=== PATIENT | male | born 1955 | race American Indian/Alaskan Native ===

== ENCOUNTER 2022-03-06 07:35 | Day surgery (SDC) | payer OTHER ==
[~2022-03-06] VITALS: Ht 170.2 cm; Wt 81.7 kg
[~2022-03-06 07:35] MED LIST: BUDESONIDE0.25 MG/2 INH; FERROUS GLUCON324 M2 PO; NEURONTIN300 MG PO; VITAMIN C500 M5 PO
--- NOTE | 2022-03-06 08:53 | NUR ---
PT WAS RELUCTANT TO GIVE PHONE NUMBER FOR RIDE HOME . FINALLY AGREED.
--- NOTE | 2022-03-06 09:35 | NUR ---
03/06/22 0935 Fouzia Messina 0966-PATIENT ARRIVED TO PACU ON 2L NC LAYING LEFT LATERAL. PATIENT REACTIVE TO VERBAL STIMULI OPENING EYES IMMEDIATELY CLOSES. RR EVEN 96% 2L NC ABDOMEN SOFT. IVF INFUSING
--- NOTE | 2022-03-07 06:23 | OR ---
[facility] [address], [place] [address] Signed DATE OF OPERATION: 03/06/2022 SURGEON: Lillian Faust MD PREOPERATIVE DIAGNOSES: 1. Chronic iron deficiency anemia. 2. History of gastritis and esophagitis in 2010 at age 54. 3. History of hyperplastic colonic polyps in 2010 at age 54. POSTOPERATIVE DIAGNOSES: 1. GE junction at 26 cm. 2. 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 3. Small to moderate sized hiatal hernia. 4. Mild diffuse gastritis. 5. Extremely poor bowel prep. PROCEDURES: 1. EGD with CLOtest and biopsy of the antrum and GE junction. 2. Limited sigmoidoscopy to distal sigmoid colon. ESTIMATED BLOOD LOSS: None. INDICATIONS: Nanette is a 66-year-old gentleman, asked to see me for upper and lower endoscopy. He has a long history of iron deficiency anemia. I helped him with upper and lower endoscopy back in 2009 for the same reason. He had gastritis and esophagitis at that time. The CLOtest was negative. He had a tiny hyperplastic polyp removed. He had done well with Versed and fentanyl. Currently, his hemoglobin is 9.1 and a mean cell volume is 63. He is taking iron tablets. We had asked him to follow up in 10 years for repeat screening colonoscopy. He gives no family history of colon cancer or polyps. He has no upper or lower GI complaints. In the office, I gave Nanette a pamphlet on both upper and lower endoscopy. We had reviewed those together. There is risk including, but not limited to gas bloating, crampy abdominal pain, bleeding, perforation requiring surgery, and missed diagnosis. We also reviewed the written instructions for the bowel prep line by line. He recalls the need for IV conscious sedation. He had expressed understanding and wished to proceed. PROCEDURE NOTE: Nanette was taken into our endoscopy suite and placed in the supine semi-recumbent Electronically Signed By: LILLIAN FAUST MD 03/07/22 0623 PATIENT NAME: NANETTE RENAE SR OPERATIVE REPORT DATE OF : 53 REPORT #: [id number] PHYSICIAN: LILLIAN FAUST MD PCP: SAURABH HUGHES REPORT IS CONFIDENTIAL AND NOT TO BE RELEASED WITHOUT AUTHORIZATION [facility] [address], [place] [address] Signed position. He was given a total of 4 mg of Versed and 100 mcg of fentanyl to cover the case. A bite block was utilized. The adult gastroscope had been introduced and advanced down the third portion of the duodenum without difficulty. The duodenum and pyloric channel were unremarkable. The stomach showed very mild diffuse erythematous changes. We took a biopsy of the antrum for CLOtest as well as pathologic review. Upon retroflexion of the scope, I could see a small to moderate sized hiatal hernia. The scope was withdrawn up through the area of GE junction, which was compliant without stricture. It was actually a bit difficult to measure his hiatal hernia. He may in fact have Rasheed's esophagus. The Z-line itself was not particularly disrupted. We went ahead and took several biopsies around the Z-line for pathologic review. However, it looks like his Z-line has been displaced up the esophagus. It only measured 26 cm from his incisors, although based on his body habitus that may be accurate. After this, the gas was suctioned out and the gastroscope removed. The middle and upper esophagus were unremarkable. Nanette was rotated into the left lateral decubitus position. A digital rectal exam was performed and this was unremarkable. The adult colonoscope was introduced and we immediately encountered formed large balls of brown stool. We worked our way around several these and into the distal sigmoid colon where we encountered a wall of stool. We could not pass the scope any further. Therefore, the scope had been removed. No obvious issues in his rectum. After this, the gas was suctioned out and the colonoscope removed. Nanette tolerated the lower endoscopy quite well. RECOMMENDATIONS: I will see Nanette back in my office in 7 to 14 days to review his results. He will need to reschedule the colonoscopy with a double bowel prep. Lillian Faust MD ALB/MODL /[id number] cc: MD Vincent Willingham MD Electronically Signed By: LILLIAN FAUST MD 03/07/22 0623 PATIENT NAME: NANETTE RENAE OPERATIVE REPORT DATE OF : 53 REPORT #: [id number] PHYSICIAN: LILLIAN FAUST MD PCP: SAURABH HUGHES REPORT IS CONFIDENTIAL AND NOT TO BE RELEASED WITHOUT AUTHORIZATION [address] [address] Signed Lillian Faust MD Copies: HANG ALEXANDER MD, ROBERT C MD BOWER, ANDREW L MD ~ Electronically Signed By: LILLIAN FAUST MD 03/07/22622 PATIENT NAME: OCNANETTE VAN OPERATIVE REPORT DATE OF : 53 REPORT #: [id number] PHYSICIAN: LILLIAN FAUST MD PCP: SAURABH HUGHES REPORT IS CONFIDENTIAL AND NOT TO BE RELEASED WITHOUT AUTHORIZATION
--- NOTE | 2022-03-10 18:15 | PATH ---
[facility] [address] [facility] [place], [place] [address] Signed SPECIMEN(S): A ANTRUM/PYLORUS BIOPSY SPECIMEN(S): B GE JUNCTION SPECIMEN SOURCE: A. ANTRUM/PYLORUS BIOPSY B. GE JUNCTION CLINICAL HISTORY: No preop or clinical information is given on requisition. FINAL PATHOLOGIC DIAGNOSIS: A. Stomach, antrum/pylorus, biopsy: - Mild superficial chronic gastritis. B. 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 COMMENT: Regarding specimen A, the sections through the gastric biopsy show an architecturally normal gastric mucosa. The superficial lamina propria contains an increased number of lymphocytes and plasma cells. A careful search is made for H. pylori and none are identified. There is no evidence of intestinal metaplasia or abnormal infiltrates. H pylori immunohistochemical stain is pending and results will follow in an addendum report. Regarding specimen B, the sections through the biopsy show the presence of cardiac mucosa that contains specialized intestinal metaplasia, including goblet cells. If this biopsy derives from endoscopically abnormal mucosa in the tubular esophagus, then the findings meet the ACG diagnostic criteria of Rasheed's esophagus. Otherwise, this is considered to be intestinal metaplasia at the GE junction. There is no evidence of H. pylori. REJI:anil:C2NR MICROSCOPIC EXAMINATION: Histologic sections of all submitted blocks are examined by light microscopy. These findings, together with the gross examination, support the pathologic diagnosis. GROSS DESCRIPTION: Two specimens are received in two containers, labeled "TB." A. The specimen, labeled "TB, antrum biopsy," is received in formalin and PATIENT NAME: NANETTE RENAE SR PATHOLOGY DATE OF : 53 REPORT #: [id number] PHYSICIAN: PATRICK MILLER PCP: SAURABH HUGHES-Marv REPORT IS CONFIDENTIAL AND NOT TO BE RELEASED WITHOUT AUTHORIZATION [facility] [address] [place], [place] [address] Signed consists of one belle soft tissue fragment that measures 0.1 cm in greatest dimension. The specimen is entirely submitted in cassette (A1). B. The specimen, labeled "TB, GE junction biopsy," is received in formalin and consists of four belle soft tissue fragments that measure 0.1 to 0.2 cm in greatest dimension. The specimen is entirely submitted in cassette (B1). JS (under the direct supervision of a pathologist) The Gross Description was prepared using a voice recognition system. The report was reviewed for accuracy; however, sound-alike word errors, addition and/or deletions may occur. If there is any question about this report, please contact Client Services. PERFORMING LABORATORY: The technical component was performed by [facility], [address] [place] [id number] (CLIA# [id number]). The professional interpretation was performed by [facility], [facility], [address] [place] [address] (CLIA#: [id number]). Diagnostician: Tim Law MD Pathologist Electronically Signed 03/10/2022 Copies: ~ PATIENT NAME: NANETTE RENAE SR PATHOLOGY DATE OF : 53 REPORT #: [id number] PHYSICIAN: PATRICK PATHOLOGY PCP: SAURABH HUHGES REPORT IS CONFIDENTIAL AND NOT TO BE RELEASED WITHOUT AUTHORIZATION
== END 2022-03-06 10:20 | disposition home or self-care (01) ==
LOC: OPS 07:35 → DS 07:35 → OPS 09:00 → DS 09:00 → OPS 10:20
PROVIDERS: ATTEND Colon & Rectal Surgery
PROC: 0DJD8ZZ Inspection of Lower Intestinal Tract, Via Natural or Artificial Opening Endoscopic (ICD-10-PCS; 2022-03-06)
PROC: 0DB48ZX Excision of Esophagogastric Junction, Via Natural or Artificial Opening Endoscopic, Diagnostic (ICD-10-PCS; principal; 2022-03-06 09:00)
PROC: 0DB78ZX Excision of Stomach, Pylorus, Via Natural or Artificial Opening Endoscopic, Diagnostic (ICD-10-PCS; 2022-03-06 09:00)
DX: K29.30 Chronic superficial gastritis without bleeding (principal); K31.A0 Gastric intestinal metaplasia, unspecified; K44.9 Diaphragmatic hernia without obstruction or gangrene; J45.909 Unspecified asthma, uncomplicated; E78.2 Mixed hyperlipidemia; E03.9 Hypothyroidism, unspecified; Z86.010 Personal history of colon polyps
CPT/HCPCS: 43239; G0104; 36415; 87077; 99153; G0500; J0690; J2250; J3010; J7121

== ENCOUNTER 2022-04-17 08:32 | Day surgery (SDC) | payer OTHER ==
[~2022-04-17] VITALS: Ht 170.2 cm; Wt 84.0 kg
--- NOTE | 2022-04-17 10:46 | NUR ---
04/17/22 1046 Iveth Baires PT TO PACU SLEEPING O2 PLACED VIA NASAL CANNULA. PT PASSING GAS, HE DOES NOT REPSPOND TO VEBAL COMMANDS, HE IS NOT AROUSED BY BEING TOUCHED OR SHAKEN. PT VERY SLEEPY.
--- NOTE | 2022-04-17 11:45 | OR ---
[facility] [address] [place], [place] [address] Signed DATE OF OPERATION: 04/17/2022 SURGEON: Lillian Faust MD PREOPERATIVE DIAGNOSES: 1. Chronic iron deficiency anemia. 2. History of gastritis and esophagitis in 2010 at age 54. 3. Personal history of hyperplastic colonic polyps in 2010 at age 54. POSTOPERATIVE DIAGNOSES: 1. Mild diffuse gastritis. 2. Moderate to large hiatal hernia. 3. 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 4. Crura at 40 cm. 5. Minimal sigmoid diverticulosis. 6. 8 mm polyp at 10 cm. PROCEDURES: 1. EGD with CLOtest and biopsies of the antrum at GE junction. 2. Colonoscopy with snare polypectomy. ESTIMATED BLOOD LOSS: None. INDICATIONS: Nanette is a 66-year-old gentleman, asked to see me for upper and lower endoscopy. He has a long history of iron deficiency anemia. His hemoglobin is currently 9.1 with a mean cell volume of 63. He has been taking iron tablets. He went to his assistant counsel. He underwent upper and lower endoscopy for the same back in 2009. He had gastritis and esophagitis at that time. The CLOtest was negative. He had a tiny hyperplastic 5 mm polyp in the colon. He had done well with Versed and fentanyl. At that time, we asked him to follow up in 10 years for a repeat screening colonoscopy. He has no family history of colon cancer or polyps. He seems to have no upper or lower GI complaints. In the office, I gave him pamphlets on both upper and lower endoscopy. We reviewed the nature of the two tests. He understands there is risk including, but not limited to gas bloating, crampy abdominal pain, bleeding, perforation requiring surgery, and missed diagnosis. We also discussed the need for IV conscious sedation. He had expressed understanding and wished to proceed. PROCEDURE NOTE: Electronically Signed By: LILLIAN FAUST MD 04/17/22 1145 PATIENT NAME: NANETTE RENAE SR OPERATIVE REPORT DATE OF : 53 REPORT #: [id number] PHYSICIAN: LILLIAN FAUST MD [facility] REPORT IS CONFIDENTIAL AND NOT TO BE RELEASED WITHOUT AUTHORIZATION [facility] [address] [place], [place] [address] Signed Nanette was taken into our endoscopy suite and placed in a supine semi-recumbent position. He was given a total of 150 mcg of fentanyl and 8 mg of Versed to cover the cases. The posterior oropharynx was anesthetized with lidocaine spray. Bite block was utilized for the case. The adult gastroscope was introduced and advanced down to the third portion of the duodenum without difficulty. The duodenum and pyloric channel were unremarkable. He does have mild erythematous changes throughout the entire stomach. We took biopsies from the antrum for pathologic review as well as CLOtest. There were no ulcerations. Upon retroflexion of the scope, we can see he does have a ferjaghx-hi-yzxad hiatal hernia. We were able to measure the crura at 40 cm. However, we had a difficult time finding the proximal aspect of his hiatal hernia. We did find the GE junction at 27 cm from his incisura. We took several biopsies in this area for pathologic review. We saw no gastric or esophageal varices. There was no strictures. After this, the gas was suctioned out the gastroscope removed. Nanette tolerated the procedure quite well. Nanette was then rotated into the left lateral decubitus position. He was maintained on IV sedation with Versed and fentanyl. A digital rectal exam was performed and this was unremarkable. He had good sphincter tone. No external hemorrhoids. There were no masses. The adult colonoscope was introduced, advanced all around into the cecum under direct visualization of the camera without difficulty. His prep was quite good. We could easily see the appendiceal orifice and ileocecal valve. The scope was then slowly withdrawn. We took pictures throughout for photodocumentation. He had just a few diverticula in the sigmoid colon. There were small to moderate in size, few in number, and scattered about. Down in the rectum at about 10 cm, he had an 8 mm polyp. We divided it with the snare and suctioned it through our scope and caught in our trap. The scope was then retroflexed. We did not see any additional pathology above the anal canal. After this, the gas was suctioned out and the colonoscope removed. Nanette tolerated the procedure quite well. RECOMMENDATIONS: I will see Nanette back in my office in 7 to 14 days to review his results. He probably needs a barium enema to better evaluate this hiatal hernia. He certainly needs close surveillance of this long segment Rasheed's esophagus. Lillian Faust MD ALB/MODL /[id number] Electronically Signed By: LILLIAN FAUST MD 04/17/22 1145 PATIENT NAME: NANETTE RENAE MORRIS OPERATIVE REPORT DATE OF : 53 REPORT #: [id number] PHYSICIAN: LILLIAN FAUST MD PCP: [facility] REPORT IS CONFIDENTIAL AND NOT TO BE RELEASED WITHOUT AUTHORIZATION [facility] [address] [place] [address] Signed cc: MD Celso Pepper MD Andrew L Bower, MD Copies: SANAM CROCKER MD, JAMES MD BOWER, ANDREW L MD ~ Electronically Signed By: LILLIAN FAUST MD 04/17/22 1145 PATIENT NAME: NANETTE RENAE OPERATIVE REPORT DATE OF : 53 REPORT #: [id number] PHYSICIAN: LILLIAN FAUST MD PCP: [facility] REPORT IS CONFIDENTIAL AND NOT TO BE RELEASED WITHOUT AUTHORIZATION
--- NOTE | 2022-04-18 15:42 | PATH ---
[facility] [address] [place], [place] [address] Signed SPECIMEN(S): A ANTRUM BIOPSY SPECIMEN(S): B GE JUNCTION BIOPSY SPECIMEN(S): C POLYP AT 10 CM SPECIMEN SOURCE: A. ANTRUM BIOPSY B. GE JUNCTION BIOPSY C. POLYP AT 10 CM CLINICAL HISTORY: Colonoscopy. Anemia; polyp x 1 2009. FINAL PATHOLOGIC DIAGNOSIS: A. Stomach, antrum, biopsy: - Chronic, active gastritis. - Positive for Helicobacter organisms on HE stain. - Negative for dysplasia or malignancy. B. Gastroesophageal junction, biopsy: - Squamocolumnar junctional mucosa with intestinal metaplasia, see Comment. - Changes consistnet with reflux esophagitis. - Negative for dysplasia or malignancy. C. Colon, polyp at 10 cm, polypectomy: - Tubular adenoma. - Negative for high-grade dysplasia or malignancy. COMMENT: Regarding specimen B: The specimen was designated gastroesophageal junction. The findings could represent Rasheed's esophagus in the correct setting, but endoscopic correlation is required. NAL:cml:C2NR MICROSCOPIC EXAMINATION: Histologic sections of all submitted blocks are examined by light microscopy. These findings, together with the gross examination, support the pathologic diagnosis. GROSS DESCRIPTION: Three specimens are received in three containers, labeled "TB." A. The specimen, labeled "TB, antrum biopsy," is received in formalin and consists of one belle soft tissue fragment that measures 0.2 cm in greatest dimension. The specimen is entirely submitted in PATIENT NAME: NANETTE RENAE MORRIS PATHOLOGY DATE OF : 53 REPORT #: [id number] PHYSICIAN: PATRICK MILLER PCP: ISIDRO FRY REPORT IS CONFIDENTIAL AND NOT TO BE RELEASED WITHOUT AUTHORIZATION [facility] [address] [place] [id number] Signed cassette (A1). B. The specimen, labeled "TB, GE junction biopsy," is received in formalin and consists of three belle soft tissue fragments that measure 0.1-0.2 cm in greatest dimension. The specimen is entirely submitted in cassette (B1). C. The specimen, labeled "TB, colon polyp at 10 cm," is received in formalin and consists of one belle soft tissue fragment that measures 0.8 cm in greatest dimension. The specimen is bisected and entirely submitted in cassette (C1). JS (under the direct supervision of a pathologist) The Gross Description was prepared using a voice recognition system. The report was reviewed for accuracy; however, sound-alike word errors, addition and/or deletions may occur. If there is any question about this report, please contact Client Services. PERFORMING LABORATORY: The technical component was performed by [email or web address], [address] [place] [id number] (CLIA# [id number]). [email or web address], [address] [place] [address] (CLIA# [id number]). Diagnostician: Caroline Quan MD Pathologist Electronically Signed 04/18/2022 Copies: ~ PATIENT NAME: NANETTE RENAE MOR[facility]IS [facility] DATE OF : 53 REPORT #: [id number] PHYSICIAN: PATRICK PATHOLOGY [facility] REPORT IS CONFIDENTIAL AND NOT TO BE RELEASED WITHOUT AUTHORIZATION
== END 2022-04-17 11:45 | disposition home or self-care (01) ==
LOC: OPS 08:32 → DS 08:34 → OPS 11:45
PROVIDERS: ATTEND Colon & Rectal Surgery
PROC: 0DBP8ZX Excision of Rectum, Via Natural or Artificial Opening Endoscopic, Diagnostic (ICD-10-PCS; 2022-04-17)
PROC: 0DB48ZX Excision of Esophagogastric Junction, Via Natural or Artificial Opening Endoscopic, Diagnostic (ICD-10-PCS; principal; 2022-04-17 09:45)
PROC: 0DB68ZX Excision of Stomach, Via Natural or Artificial Opening Endoscopic, Diagnostic (ICD-10-PCS; 2022-04-17 09:45)
DX: K29.50 Unspecified chronic gastritis without bleeding (principal); D12.8 Benign neoplasm of rectum; D50.9 Iron deficiency anemia, unspecified; K57.30 Diverticulosis of large intestine without perforation or abscess without bleeding; K44.9 Diaphragmatic hernia without obstruction or gangrene; Z87.19 Personal history of other diseases of the digestive system; E78.2 Mixed hyperlipidemia; E03.9 Hypothyroidism, unspecified; J45.909 Unspecified asthma, uncomplicated
CPT/HCPCS: 36415; 87077; 99153; G0500; J2250; J3010

== ENCOUNTER 2022-11-06 08:43 | Emergency (ER) | payer OTHER ==
[~2022-11-06] VITALS: Ht 170.2 cm; Wt 84.5 kg
--- OUTSIDE RECORDS SUMMARY | 2022-11-06 08:46 | XMS ---
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 Freddie has no Care Guidelines for this patient. Chip VISIT COUNT (12 MO.) 1 ANAYA Obando TOTAL 1 NOTE: Visits indicate total known visits. ED/[facility] VISIT TRACKING (12 MO.) 11/06/2022 08:45 ANAYA Rivera [place] TYPE: Emergency COMPLAINT: - R KNEE INJURY INPATIENT VISIT TRACKING (12 MO.) No inpatient visits to display in this time frame [email or web address]
== END 2022-11-06 09:23 | disposition home or self-care (01) ==
LOC: ED 08:43
DX: M70.41 Prepatellar bursitis, right knee (principal)
CPT/HCPCS: 99283; A9270

== ENCOUNTER 2022-11-08 07:13 | Emergency (ER) | payer OTHER ==
[~2022-11-08] VITALS: Ht 170.2 cm; Wt 84.5 kg
--- OUTSIDE RECORDS SUMMARY | 2022-11-08 07:16 | XMS ---
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 Freddie has no Care Guidelines for this patient. Chip [facility] ([facility] MO.) [facility] 2 NOTE: Visits indicate total known visits. ED/C VISIT TRACKING (12 MO.) 11[facility]22 07:[facility] [facility] Emergency COMPLAINT: - EXTREMITY PAIN/INJURY 11/06/2022 08:[address] [facility] [place] TYPE: Emergency COMPLAINT: - R KNEE INJURY DIAGNOSES: - Pain in right knee - Prepatellar bursitis, right knee INPATIENT VISIT TRACKING (12 MO.) No inpatient visits to display in this time frame [email or web address]
[2022-11-08] MEDS ORDERED: CEPHALEXIN500 M1 PO (08:07)
== END 2022-11-08 08:17 | disposition home or self-care (01) ==
LOC: ED 07:13
DX: M70.41 Prepatellar bursitis, right knee (principal); Z79.899 Other long term (current) drug therapy
CPT/HCPCS: 73560; 99283-25; A9270

== ENCOUNTER 2022-11-10 07:58 | Emergency (ER) | payer OTHER ==
[~2022-11-10] VITALS: Ht 170.2 cm; Wt 84.5 kg
[~2022-11-10 07:58] MED LIST changes: +BUDESONIDE-FO10.2 G1 INH; -BUDESONIDE0.25 MG/2 INH; +CEPHALEXIN500 M1 PO
--- OUTSIDE RECORDS SUMMARY | 2022-11-10 08:01 | XMS ---
PreManage Notification: NANETTE RENAE Security [facility] Director Events No recent Security Events currently on file CRITERIA MET - [facility] - 2 Visits in 30 Days - [facility] CARE PROVIDERS There are no care providers on record at this time. Freddie has no Care Guidelines for this patient. Chip VISIT COUNT (12 MO.) 3 [facility] TOTAL 3 NOTE: Visits indicate total known visits. ED/C VISIT TRACKING (12 MO.) 11/10/2022 07:59 [facility] [place] TYPE: Emergency COMPLAINT: - R LEG PAIN 11/08/2022 07:14 ANAYA Rivera [place] TYPE: Emergency COMPLAINT: - EXTREMITY PAIN/INJURY 11/06/2022 08:45 ANAYA Rivera [place] TYPE: Emergency COMPLAINT: - R KNEE INJURY DIAGNOSES: - Pain in right knee - Prepatellar bursitis, right knee INPATIENT VISIT TRACKING (12 MO.) No inpatient visits to display in this time frame [id number]
[2022-11-10] MEDS ORDERED: CEPHALEXIN500 M1 PO (10:03)
[2022-11-10] MEDS ORDERED: DOXYCYCLINE HY100 MG PO (10:03)
[2022-11-10] MEDS ORDERED: ONDANSETRON ODT8 MG PO (10:07)
== END 2022-11-10 10:45 | disposition home or self-care (01) ==
LOC: ED 07:58
DX: M71.161 Other infective bursitis, right knee (principal); Z79.899 Other long term (current) drug therapy
CPT/HCPCS: 20610; 36415; 80053; 85025; 87205; 99283-25; J0690; J2405

== ENCOUNTER 2022-11-13 11:15 | Inpatient (IN) | payer OTHER ==
[~2022-11-13] VITALS: Ht 170.2 cm; Wt 82.5 kg
[~2022-11-13 11:15] MED LIST changes: +DOXYCYCLINE HY100 MG PO; +ONDANSETRON ODT8 MG PO
[2022-11-13] MEDS ORDERED: CEPHALEXIN500 MG PO (11:40)
[2022-11-13] MEDS ORDERED: PAIN RELIEVER500 M1 PO (12:23)
[2022-11-13] MEDS ORDERED: IBUPROFEN400 MG PO (12:23)
--- NOTE | 2022-11-13 12:49 | NUR ---
PT TO ROOM 112 VIA WC WITH SECURITY ASSIST.
--- NOTE | 2022-11-13 13:40 | NUR ---
RT COLLECTED RAPID COVID 19 SWAB AT THIS TIME WITH NO COMPLICATIONS.
--- NOTE | 2022-11-13 14:00 | NUR ---
Spoke with Serafin. He reside in [place] in a Duplex, has 1 step to get into his home. 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 Had worsening pain since that time and difficulty walking today. Was a direct admit. States he will have surgery tomorrow. He has not used DME in the past, but did have a walking stick. He lives alone, drives, shops, and does his own cooking. His concern is he left his phone at his home, coworkers do not know where he is. He asks I call his boss, Chelle and let her know where he is and ask someone to pickup his house padgett from his room here and get his phone. He states he doesn't know any ones phone numbers. Pt does not know his insurance or his Drs name, but does state he uses [facility] and their pharmacy. His niece is arriving from out of town and he wants to tell her he is here. Called Chelle at [facility] and updated. She will take care of everything. Pt plans on dc to home when cleared medically. We did discuss he may need a walker, will wait to see what Dr. Baires documents for needs.
--- NOTE | 2022-11-13 14:53 | NUR ---
in room with pt and dr valderrama, pt given po pain medications for r leg.
--- NOTE | 2022-11-13 15:50 | NUR ---
in room with pt attempted to call cousin jose f to let someone know where he is - cell phone is at home - no answer no message - rn wrote number on white board. vanco started iv left arm. pt has voided 450 ml and pre op ekg is complete. lr for surgery at bedside and pre op wipe down instructions given for am. aware of npo status at midnight and sign to door. blank consent and labs to chart.
[2022-11-13] MEDS ORDERED: OMEPRAZOLE20 MG PO (17:00)
--- NOTE | 2022-11-13 17:37 | NUR ---
Medications reconciled using [facility] pharmacy records and patient interview
--- NOTE | 2022-11-13 18:51 | NUR ---
pt resting in bed, call light in reach - denies needs. leg elevated.
--- NOTE | 2022-11-13 19:00 | NUR ---
REPORT RECEIVED FROM CHANDLER CARNEY. PT LAYING IN BED AND RESPONDS WHEN ADDRESSED. IV ALARMING, RESOLVED. PT DENIES ANY NEEDS AT THIS TIME. CALL LIGHT IN REACH.
--- NOTE | 2022-11-13 20:47 | NUR ---
IN TO ROUND ON PT. VITALS AND I&Os COMPLETE. ASSESSMENT COMPLETE. LUNG SOUNDS CLEAR. BOWEL TONES ACTIVE. PT DENIES ANY PAIN AT THIS TIME. RLE WARM TO TOUCH, RED AND EDEMA NOTED. BLE PEDAL PULSES PALPABLE. DRESSING TO R KNEE SMALL AMOUNT OF SHADOWING NOTED, OTHERWISE D/I. IV INFUSING WNL. PT REQUESTING TO GET UP AND PERFORM ORAL CARE. SBA FROM BED TO RESTROOM AND BACK TO BED. PT HAS STEADY GAIT. PT REPORTS NO OTHER NEEDS AT THIS TIME. CALL LIGHT IN REACH. PT INFORMED TO USE CALL LIGHT IF PT NEEDS ASSISTANCE UNPLUGGING IV POLE TO USE RESTOOM. PT VERBALIZES UNDERSTANDING.
--- NOTE | 2022-11-13 21:47 | EKG ---
[facility] [address] [facility] [place] [address] Signed Normal sinus rhythm Nonspecific T wave abnormality Abnormal ECG No previous ECGs available Confirmed by OTTO VILLALTA MD ([id number]) on 11/13/2022 9:47:25 PM Electronically Signed By: OTTO VILLALTA MD 11/13/222146 PATIENT NAME: NANETTE RENAE MORRIS Electrocardiogram DATE OF : 53 PHYSICIAN: OTTO VILLALTA MD REPORT #: [id number] REPORT IS CONFIDENTIAL AND NOT TO BE RELEASED WITHOUT AUTHORIZATION
--- NOTE | 2022-11-13 22:10 | NUR ---
IN TO ROUND NO PT. PT LAYING IN BED ON LEFT SIDE. RR EVEN AND UNLABORED. NO NEEDS IDENTIFIED AT THIS TIME. CALL LIGHT IN REACH.
--- NOTE | 2022-11-13 23:04 | NUR ---
IN TO ROUND ON PT. PT LAYING IN BED AND ADDRESSES THIS RN WHEN THIS RN ENTERS ROOM. PT REPORTS BEING READY FOR BED. PT REQUESTING LIGHT TO BE TURNED OFF. LIGHT TURNED OFF. IV INFUSING WNL. PT DENIES ANY OTHER NEEDS AT THIS TIME. CALL LIGHT IN REACH. RLE ELEVATED WITH PILLOW.
--- NOTE | 2022-11-13 23:39 | NUR ---
IN TO ROUND ON PT. PT LAYING IN BED WITH EYES CLOSED. RR EVEN AND UNLABORED. PT ADDRESSES THIS RN WHEN ENTERING ROOM. PT REPORTS USING URINAL, URINAL EMPTIED. IV INFUSING WNL. WATER AND GATORADE REMOVED FROM PTs REACH. PT INFORMED OF NPO STATUS AT MIDNIGHT. PT VERBALIZES UNDERSTANDING. PT DENIES ANY OTHER NEEDS AT THIS TIME. CALL LIGHT IN REACH.
--- NOTE | 2022-11-14 00:22 | NUR ---
IN TO ROUND ON PT. PT LAYING IN BED WITH RLE ELEVATED ON PILLOW. PTs EYES CLOSED. RR EVEN AND UNLABORED. NO NEEDS IDENTIFIED AT THIS TIME. CALL LIGHT IN REACH.
--- NOTE | 2022-11-14 01:22 | NUR ---
IN TO ROUND ON PT. PT LAYING IN BED WITH EYES CLOSED. RR EVEN AND UNLABORED. NO NEEDS IDENTIFIED AT THIS TIME. CALL LIGHT IN REACH. IV INFUSING WNL.
--- NOTE | 2022-11-14 02:39 | NUR ---
IN TO COMPLETE VITALS AND I&Os. ASSESSMENT COMPLETE. LUNG SOUNDS CLEAR. BOWEL TONES ACTIVE. PT DENIES ANY PAIN AT THIS TIME. RLE EDEMA NOTED, RED AND WARM TO TOUCH. RLE ELEVATED ON PILLOW. URINAL EMPTIED. PT DENIES ANY OTHER NEEDS AT THIS TIME. CALL LIGHT IN REACH.
--- NOTE | 2022-11-14 04:14 | NUR ---
IN TO ROUND ON PT. PT AWAKE IN BED WATCHING TV. PT RESPONDS WHEN ADDRESSED. PT DENIES ANY NEEDS AT THIS TIME. CALL LIGHT IN REACH. IV INFUSING WNL.
--- NOTE | 2022-11-14 05:32 | NUR ---
IN TO ROUND ON PT. PT LAYING IN BED WATCHING TV. PT ADDRESSES THIS RN WHEN ENTERING ROOM. PT REQUESTING LIGHT TO BE TURNED ON. LIGHT TURNED ON. I&Os COMPLETE. PT REPORTING PAIN 2/10 IN RLE. PT DENIES PRN PAIN MEDICATION WHEN OFFERE. PT REPORTS NO OTHER NEEDS AT THIS TIME. CALL LIGHT IN REACH.
--- NOTE | 2022-11-14 06:25 | NUR ---
IN WITH ANDREW RN TO ASSIST PT WITH HIBICLENSE WIPE DOWN. BANDAIT TO R KNEE REMOVED. SHADOWING NOTED TO DRESSING. R KNEE NOTED TO HAD SEROUSANGUENOUS FLUID DRAINING. LINENS CHANGED. NEW GOWN PROVIDED. PT DENIES ANY OTHER NEEDS AT THIS TIME. CALL LIGHT IN REACH. URINE OUTPUT NOTED IN URINAL. URINAL EMPTIED.
--- NOTE | 2022-11-14 07:00 | NUR ---
report from juice navas, pt ready for or with dr patton for r knee. lr strait tubing in room, and consent/labs/xray to chart. pt resting in bed - surgical wipe is complete.
--- NOTE | 2022-11-14 07:00 | NUR ---
dr valderrama aware of preliminary result from anaerobic/aerobic/gram stain from abscess. results show light growth staphylococcus aureus. no new orders received at this time. primary eloise bose aware.
--- NOTE | 2022-11-14 07:10 | NUR ---
THIS RN CALLED DR. SANCHEZ. UPDATED ON LAB RESULTS. NO NEW ORDERS RECEIVED.
--- NOTE | 2022-11-14 08:29 | NUR ---
PATIENT IN OR, WILL CHECK IN ON THE PATIENT WHEN HE RETURNS.
--- NOTE | 2022-11-14 09:16 | NUR ---
11/14/22 0916 Tati Galvin 0910- PT ARRIVES TO PACU NONAROUSABLE TO STIMULI. PT NEEDING A JAW LIFT TO MAINTAIN PATENT AIRWAY. RESP EVEN AND UNLABORED. OXYGEN SAT HIGH 90'S TO 100% ON 6L VIA MASK. 0914- PT REPOSITIONED IN BED WHERE AIRWAY CAN BE MAINTAINED WITHOUT JAW LIFT. RESP EVEN AND UNLABORED. OXYGEN SAT HIGH 90'S TO 100% ON 6L VIA MASK.
--- NOTE | 2022-11-14 09:35 | NUR ---
th rn returned call to [facility]anto[facility] [phone] he reported [place] called him to notify of pt having surgery and was worried. re assured him he left his cell phone at home and rn would give pt the phone number to return call.
--- NOTE | 2022-11-14 10:00 | NUR ---
pt returned to room 112, r leg with ice and elevation, drsg to r knee cdi, pt denies needs, vitals wnl- visitors in room to see pt, call light in reach.
--- NOTE | 2022-11-14 10:25 | NUR ---
INTO SEE PATIENT, PATIENT AWAKE WATCHING TV. HE STATES HE HAS "A LITTLE PAIN, BUT IT'S OKAY." AFTER RETURNING FROM THE OR. PATIENT HAS NO FURTHER NEEDS AT THIS TIME. WILL CONTINUE TO F/U WITH PATIENT.
--- NOTE | 2022-11-14 11:01 | NUR ---
POST OP VITAL SIGNS STABLE - PT RESTING IN BED WATCHING TV, DENIES COMPLAINTS OR NEEDS AT THIS TIME.
--- NOTE | 2022-11-14 11:22 | NUR ---
CPOX STARTED ON PT. SAT 93.
--- NOTE | 2022-11-14 11:34 | NUR ---
in room with pt - po pain meds given for 5/10 r knee pain. ensure given - educated pt on constipation and nutrtion for post op... menu given and explained for calling in, pt happy. ice to inc. and cdi. call light in reach.
--- NOTE | 2022-11-14 14:00 | NUR ---
in room with dr valderrama and jose complete - drsg wnl - cms wnl, pt denies needs, call light in reach.
--- NOTE | 2022-11-14 14:23 | NUR ---
PATIENT IN BED AFTER MEAL. VITALS COMPLETED BY NURSE. I/O'S COMPLETED BY THIS NEW CAR MAKE READY WORKER. CALL LIGHT WITHIN REACH.
--- NOTE | 2022-11-14 14:55 | NUR ---
iv toradol given as scheduled /10 pain in r kneww - pt resting and denies other needs. call light in reach and knee wnl.
--- NOTE | 2022-11-14 19:00 | NUR ---
ASSUMED CARE OF PT UPON RECEIVING BEDSIDE HANDOFF REPORT FROM DAY NURSE. PT AOX4, NAD, NO C/O. WILL CONTINUE TO MONITOR AND FOLLOW POC.
--- NOTE | 2022-11-14 19:45 | NUR ---
PT IS BACK TO BED FROM THE TOILET, X1 SCD CUFF ON PT, NO FURTHER NEEDS AT THIS TIME
--- NOTE | 2022-11-15 00:22 | NUR ---
PT RESTING IN BED, ASLEEP BUT EASILY AROUSED. VSS, NAD, NO C/O. NO CHANGE TO ASSESSMENT.
--- NOTE | 2022-11-15 04:20 | NUR ---
PT SLEEPING, EASILY AROUSED. NAD, NO C/O. NO CHANGE IN ASSESSMENT. WILL CONTINUE TO MONITOR AND FOLLOW POC.
--- NOTE | 2022-11-15 07:01 | NUR ---
PT WITH NO ACUTE OVERNIGHT EVENTS. VSS, NO C/O. WILL HANDOFF CARE OF PT TO DAY RN DURING BEDSIDE REPORT.
--- NOTE | 2022-11-15 08:00 | NUR ---
ASSESSMENT COMPLETED. DISCUSSED POC FOR DAY. DRESSING TO RIGHT LEG INTACT. PATIENT REQUESTING PAIN MEDICATION, STATES " I AM ABLE TO MOVE MY LEG BETTER, BUT IT'S STILL PAINFUL".
--- NOTE | 2022-11-15 08:44 | NUR ---
WENT IN PATIENT'S ROOM. PATIENT WAS EATING HIS BREAKFAST WHILE IN BED. ASKED PATIENT IS THERE ANYTHING HE NEEDS RIGHT NOW AND HE SAID NO. HE DID SAY HE WANTED TO TAKE A SHOWER.
--- NOTE | 2022-11-15 09:30 | NUR ---
ADMINISTERED PAIN MEDICATION PER MAR, PATIENT THEN UP TO BATHROOM WITH SUPERINTENDENT SANITATION. APPEARS STEADY ON FEET. IV ANTIBIOTICS INFUSING. NO OTHER NEEDS AT THIS TIME.
--- NOTE | 2022-11-15 10:30 | NUR ---
PATIENT REPORTS PAIN MEDICATION EFFECTIVE, REPORTS PAIN TOLERABLE RATES 3/10 ON PAIN SCALE. NO OTHER NEEDS AT THIS TIME.
--- NOTE | 2022-11-15 12:02 | NUR ---
IN ROOM ROUNDING ON PATIENT.
--- NOTE | 2022-11-15 12:58 | NUR ---
NURSE HANDOFF TO LEAH ARTEAGA.
--- NOTE | 2022-11-15 16:02 | NUR ---
REPORT RECEIVED FROM GABRIELA ARTEAGA AT 1300. PATIENT SHOWERED- RAGMAN SET UP AND HE SHOWERED INDEPENDELTY. RIGHT WRIST IV FLUSHED W/ 10 ML NS WNL- SALINE LOCKED. PATIENT REPORTED 6/10 PAIN AFTER SHOWER- VICODIN GIVEN. SEE EMAR. PATIENT REPORTS PAIN 4/10 ACCEPTABLE AFTER VICODIN; REPOSITION AND ICE. [address] SANCHEZ C&S RETURNED -MRSA POSITIVE. NIO ENTERED FOR CONTACT PRECATIONS. COMMUNICATED WITH CHARGE AND RAGMAN- INITATED CONTACT PRECAUTIONS PER PROTOCOL. WRITTEN AND VERBAL EDUCAITON PROVIDED TO PATIENT ON MRSA, CONTACT PRECATIONS, AND BURSITIS. PATIENT VERBALIZED UNDERSTANDING OF PRECATIONS AND ASKED QUESTIONS APPROPRIATELY. VOIDS IN URINAL WITHOUT DIFFICULTY AND AMBULATES WITH SBA. NOTIFED DR SANCHEZ THAT PT WAS UNABLE TO SEE PATIENT TODAY BUT CAN FOLLOW UP TOMORROW.
--- NOTE | 2022-11-16 02:00 | NUR ---
PT SLEEPING IN BED, EASILY AROUSED. NAD, NO C/O. WILL CONTINUE TO MONITOR AND FOLLOW POC.
--- NOTE | 2022-11-16 06:10 | NUR ---
PT WITH NO ACUTE OVERNIGHT EVENTS. VSS, NAD, NO C/O. WILL CONTINUE TO MONITOR AND FOLLOW POC AND HANDOFF PT CARE TO DAY NURSE UPON COMPLETING BEDSIDE SHIFT REPORT.
--- NOTE | 2022-11-16 08:00 | NUR ---
FULL BODY ASSESSMENT DONE. DRESSING TO RIGHT KNEE CLEAN AND INTACT. PROVIDING MORNING CARE. PATIENT SET UP WITH BREAKFAST, SITTING UP IN RECLINER. RATED PAIN 5/10 ON PAIN SCALE, AMDINISTERED PAIN MEDICATION PER MAR.
--- NOTE | 2022-11-16 09:32 | OR ---
[facility] [address] [place], [place] [address] Signed DATE OF OPERATION: 11/14/2022 SURGEON: Yeimi Baires MD PREOPERATIVE DIAGNOSIS: Right knee prepatellar bursitis with associated cellulitis. POSTOPERATIVE DIAGNOSIS: Right knee prepatellar bursitis with associated cellulitis. PROCEDURE PERFORMED: Right knee bursectomy, prepatellar. MIXING ENGINEER: None. ANESTHESIA: General. BLOOD LOSS: 75 mL. TOURNIQUET TIME: Zero SPECIMENS: Deep cultures were sent to the lab. 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 He had progressive swelling and warmth in the front of his knee. He presented to the ER on three different occasions, finally having an aspiration on the third occasion. He then presented to my office several days later with drainage from the aspiration site in the front of his knee and cellulitis extending down the lateral side of the leg to the ankle medially about chcf down. I admitted him to the hospital and placed him on IV antibiotics and planned for an operative bursectomy this morning. Risks, benefits, and alternatives were discussed with him and he elected to proceed. Once consent was obtained, he was taken to the operating room after adequate anesthesia. He was placed on operating table. All downside pressure points well padded. The right leg was Electronically Signed By: YEIMI BAIRES MD 11/16/22 0932 PATIENT NAME: NANETTE RENAE SR OPERATIVE REPORT DATE OF : 53 REPORT #: [id number] PHYSICIAN: YEIMI BAIRES MD PCP: [facility] REPORT IS CONFIDENTIAL AND NOT TO BE RELEASED WITHOUT AUTHORIZATION [facility] [address] [place] [id number] Signed prepped and draped in a standard sterile fashion. The incision was then marked out taking the area of skin around the draining sinus completely out. This was done in a long ellipse. The skin was incised longitudinally and carried through skin and subcutaneous tissue, which was quite thickened. The bursa was encountered, which did have mucopurulent material. The material was cultured with culture swabs. These were passed off the table. It was then sharply debrided using a combination of the knife and rongeur until clean tissue was obtained with good bleeding. The wound was then copiously irrigated with one bottle of Irrisept and a liter of normal saline. All bleeders were then cauterized. The wound was then closed using interrupted 2-0 nylon sutures. The wound was then dressed with an Acticoat 7 dressing, ABD, and Monster wrap. He tolerated the procedure well. All sponge, needle, and instrument counts were correct. Yeimi Baires MD BA/STEPHANIEL /[id number] Copies: ~ Electronically Signed By: YEIMI BAIRES MD 11/16/22 0932 PATIENT NAME: NANETTE RENAE MORRIS MAYO OPERATIVE REPORT DATE OF : 53 REPORT #: [id number] PHYSICIAN: YEIMI BAIRES MD [facility] REPORT IS CONFIDENTIAL AND NOT TO BE RELEASED WITHOUT AUTHORIZATION
--- NOTE | 2022-11-16 09:33 | NUR ---
DR. SANCHEZ TO ROOM TO ROUND ON PATIENT. VERBAL ORDER FOR ONE TIME DOSE OF MOM, SECONDARY TO PATIENT COMPLAINTS OF STOOL BEING HARD TO PASS AND REQUESTING MOM BECAUSE "IT WORKS FOR HIM". PATIENT UP AMBULATING, APPEARS STEADY ON FEET. NO OTHER NEEDS AT THIS TIME.
[2022-11-16] MEDS ORDERED: SENNA LAX8.6 MG PO (09:36)
[2022-11-16] MEDS ORDERED: FLUCONAZOLE200 MG PO (09:36)
[2022-11-16] MEDS ORDERED: HYDROCODON-ACE1 EA11 PO (09:36)
[2022-11-16] MEDS ORDERED: BACTRIM DS TAB1 EACH PO (09:37)
--- NOTE | 2022-11-16 11:56 | NUR ---
DICHARGE INSTRUCTION AND EDUCATION PROVIDED TO PATIENT. ANSWERED QUESTIONS AND CONCERNS. PATIENT PLANS TO GET CANE AT STORE WHEN PICKS UP MEDICATIONS. PATIENT INSTRUCTED TO KEEP THE DRESSING ON UNTIL FOLLOW UP WHERE THE DRESSING WOULD BE CHANGED. PATIENT AWARE THAT BLACK RESIDUE HE IS SEEING UNDER THE [facility] [employer]AP IS THE ACTICOAT AND THAT IT IS AN ANTIMICROBRIAL DRESSING THAT NEEDS TO STAY IN PLACE.
== END 2022-11-16 11:40 | disposition home or self-care (01) | DRG 501 ==
LOC: MS 11:15
PROVIDERS: ADMIT Specialist; ATTEND Specialist
PROC: 0MBN0ZZ Excision of Right Knee Bursa and Ligament, Open Approach (ICD-10-PCS; principal; 2022-11-14 09:00)
DX: M70.41 Prepatellar bursitis, right knee (principal); L03.115 Cellulitis of right lower limb; J45.909 Unspecified asthma, uncomplicated; Z20.822 Contact with and (suspected) exposure to COVID-19
CPT/HCPCS: 36415; 80053; 85025; 85060; 93005; 93010; 94760; A9270; C9803; J0131; J1100; J1885; J2001; J2405; J2704; J3010; J3370; J7060; J7121; U0003

== ENCOUNTER 2023-09-11 16:09 | Emergency (ER) | payer OTHER, BC ==
[~2023-09-11] VITALS: Ht 170.2 cm; Wt 84.5 kg
[~2023-09-11 16:09] MED LIST changes: +BACTRIM DS TAB1 EACH PO; +CEPHALEXIN500 MG PO; +FLUCONAZOLE200 MG PO; +HYDROCODON-ACE1 EA11 PO; +IBUPROFEN400 MG PO; +OMEPRAZOLE20 MG PO; +PAIN RELIEVER500 M1 PO; +SENNA LAX8.6 MG PO
[2023-09-11] MEDS ORDERED: BREYNA 160-4.10.3 GM (16:18)
[2023-09-11] MEDS ORDERED: CEPHALEXIN500 MG PO (20:34)
[2023-09-11 20:50] VITALS: BP 140/80
== END 2023-09-11 20:50 | disposition home or self-care (01) ==
LOC: ED 16:09
DX: L03.115 Cellulitis of right lower limb (principal); J45.909 Unspecified asthma, uncomplicated; Z79.899 Other long term (current) drug therapy; Z23 Encounter for immunization
CPT/HCPCS: 73560; 90471; 90715; 99283-25; A9270

== ENCOUNTER 2023-10-18 09:56 | Emergency (ER) | payer BC, OTHER ==
[~2023-10-18] VITALS: Ht 170.2 cm; Wt 90.7 kg
[~2023-10-18 09:56] MED LIST changes: +BREYNA 160-4.10.3 GM
[2023-10-18] MEDS ORDERED: LIDODERM1 EACH TOP (11:44)
[2023-10-18 12:01] VITALS: BP 139/74
== END 2023-10-18 11:57 | disposition home or self-care (01) ==
LOC: ED 09:56
DX: M54.50 Low back pain, unspecified (principal); J45.909 Unspecified asthma, uncomplicated; X50.0XXA Overexertion from strenuous movement or load, initial encounter
CPT/HCPCS: 72100; 99283-25; A9270